=== PATIENT | male | born 1960 | race Caucasian/White ===

== ENCOUNTER → 2024-09-03 | Outpatient (CLI) | payer BC, SELFPAY ==
[2024-09-03 13:43] LABS: Iron 72 ug/dL (65-175)
[2024-09-03 14:07] LABS: Ferritin 214 ng/mL (37-417)
[2024-09-06 08:09] LABS: G6PD Quant Test 257 (127-427); Red Blood Cell Count Test/G6PD 5.09 x10E6/uL (4.14-5.80)
== END | disposition home or self-care (01) ==
LOC: LABSPEC 12:43
PROVIDERS: Visit Provider Nurse Practitioner Family
DX: A69.20 Lyme disease, unspecified (principal); R06.00 Dyspnea, unspecified; R41.89 Other symptoms and signs involving cognitive functions and awareness; R61 Generalized hyperhidrosis; I10 Essential (primary) hypertension; F41.9 Anxiety disorder, unspecified; H93.13 Tinnitus, bilateral; R53.83 Other fatigue
CPT/HCPCS: 82728; 82955; 83540

== ENCOUNTER → 2025-01-11 | Outpatient (CLI) | payer BC, SELFPAY ==
[2025-01-11 10:19] LABS: Hematocrit 40.0 % (40-54); Hemoglobin 13.6 g/dL (13.0-16.5); Immature Granulocytes Count 0.020 X10^3/uL (0.0-0.0); Mean Corp Hgb Conc 34.0 g/dL (32-36); Mean Corpuscular Volume 92.8 fL (80-94); Mean Platelet Vol. 12.9 fl (6.2-12.0); NRBC Flagged by Analyzer 0 % (0-5); Platelet Count 113 K/mm3 (150-450); RBC Distribution Width CV 12.8 % (11.6-14.6); RBC Distribution Width SD 43.5 fl (35.1-43.9); Red Blood Count 4.31 M/mm3 (4.6-6.2); White Blood Count 5.3 K/mm3 (4.4-11.0)
[2025-01-11 11:01] LABS: AST(SGOT) 43 U/L (<=37); Alanine Aminotransfer ALT/SGPT 74 U/L (<=46); Albumin, Serum 4.6 g/dL (3.4-4.8); Alkaline Phosphatase 54 U/L (40-129); Anion Gap 12 (5-15); BUN 17 mg/dL (4-19); BUN/Creat Ratio 14.6 RATIO (10-20); Calcium,Total 9.4 mg/dL (7.6-11.0); Carbon Dioxide 23.3 mmol/L (21.0-32.0); Chloride 105 mmol/L (98-108); Globulin 2.7 g/dL (2.2-4.2); Glucose 96 mg/dL (70-99); Potassium 4.3 mmol/L (3.3-5.1)
== END | disposition home or self-care (01) ==
LOC: LABSPEC 10:08
PROVIDERS: Referring Provider Nurse Practitioner Family; Visit Provider Nurse Practitioner Family
DX: A69.20 Lyme disease, unspecified (principal); R06.00 Dyspnea, unspecified; R41.89 Other symptoms and signs involving cognitive functions and awareness; R61 Generalized hyperhidrosis; I10 Essential (primary) hypertension; F41.9 Anxiety disorder, unspecified; H93.13 Tinnitus, bilateral; R53.83 Other fatigue; H53.2 Diplopia; B60.00 Babesiosis, unspecified; A44.0 Systemic bartonellosis; D68.69 Other thrombophilia
CPT/HCPCS: 80053; 83010; 85025